=== PATIENT | male | born 1960 | race Caucasian/White ===

== ENCOUNTER → 2018-12-11 10:47 | Outpatient (CLI) | payer MEDICARE, MEDICAID ==
--- NOTE | 2018-12-19 10:39 | ST ---
PATIENT:ANDRADE MENDOZA MEDICAL RECORD: [id number] SEX: M LOCATION:[facility] ORDER #: ADMISSION DATE: 12/11/18 AGE OF PATIENT: 58 REFERRING PHYSICIAN: INTERPRETING PHYSICIAN: MICHELLE JO MD DATE OF SERVICE: 12/11/2018 PROCEDURE: Nuclear stress test. INDICATION: Chest pain, syncope. The patient was exercised on standard Lexiscan protocol with 33 mCi of sestamibi injected at peak stress, 11 mCi were used previously for rest images. FINDINGS: Gated SPECT reveals preserved ejection fraction at 55% with good wall motion and thickening and brightening throughout all segments. SPECT imaging Cardiolite was used as myocardial fusion agent. There is homogeneous uptake throughout all segments at rest and stress with no evidence of inducible ischemia or previous infarction. OVERALL IMPRESSION: 1. This is a normal nuclear stress test with no evidence of inducible ischemia or previous infarction. 2. Gated SPECT reveals a preserved ejection fraction at 55%. In this patient with ongoing symptomatology, the current scan does not suggest the presence of hemodynamically significant coronary artery disease. Evaluate noncardiac etiology of chest pain. TRANSINT:[id number] Voice Confirmation ID: [id number] DOCUMENT ID: [id number] MICHELLE JO MD at 1039 CC: ABIODUN WORLEY MD [id number] DICTATION DATE: 12/12/18 1233 ASSET MANAGER: 12/13/18 0253 DEP CLI 12/11/18 [address] [place] [address]
== END | disposition home or self-care (01) ==
LOC: D.HCCARDIO 10:47
PROVIDERS: ATTEND Internal Medicine Interventional Cardiology
DX: R55 Syncope and collapse (principal)

== ENCOUNTER → 2019-05-10 12:04 | Outpatient (CLI) | payer MEDICARE, MEDICAID ==
[2019-05-10 12:46] LABS: BASOPHILS 0.4 % (0-2); EOSINOPHILS 0.8 % (0-7); HEMATOCRIT 27.5 % (42.0-54.0); HEMOGLOBIN 9.2 g/dL (13.5-17.5); IMMATURE GRANULOCYTES 0.4 % (0-5); MCH 34.8 pg (26.0-34.0); MCHC 33.5 g/dL (31.0-37.0); MCV 104.2 fL (80.0-100.0); MEAN PLATELET VOLUME 10.8 fL (7.4-10.4); MONOCYTES 8.9 % (2-11); NEUTROPHILS 84.5 % (40-80); PLATELET COUNT 434 10x3/uL (130-400); RBC 2.64 10x6/uL (4.20-6.10); RDW 26.4 % (11.5-14.5); WBC 17.8 10x3/uL (4.8-10.8)
[2019-05-10 12:49] LABS: % SATURATION 61 % (15-55); IRON 198 ug/dl (35-150); TOTAL IRON BIND CAPACITY 321 ug/dl (260-445); UNSAT IRON BIND CAPACITY 123 ug/dl (150-375)
[2019-05-10 13:17] LABS: ALBUMIN 3.9 g/dL (3.4-5.0); ALKALINE PHOSPHATASE 59 U/L (46-116); ALT (SGPT) 19 U/L (10-68); BILIRUBIN - TOTAL 1.37 mg/dL (0.2-1.3); CALC OSMOLALITY 281 mosm/kg (275-300); CALCIUM 8.5 mg/dL (8.5-10.1); CARBON DIOXIDE 26.1 mmol/L (21.0-32.0); CHLORIDE - SERUM 105 mmol/L (98-107); CREATININE - SERUM 0.8 mg/dL (0.6-1.3); FERRITIN 123 ng/mL (3-244); GLUCOSE 93 mg/dL (74-106); POTASSIUM - SERUM 4.4 mmol/L (3.5-5.1); PROTEIN - SERUM 7.4 g/dL (6.4-8.2); SODIUM 141 mmol/L (136-145); UREA NITROGEN 14 mg/dL (7-18); eGFR NON AFRICAN AMERICAN > 90 mL/min (90-120)
== END | disposition home or self-care (01) ==
LOC: D.LABREF 12:04
PROVIDERS: ATTEND Legal Medicine
DX: R55 Syncope and collapse (principal); D46.9 Myelodysplastic syndrome, unspecified

== ENCOUNTER → 2020-01-15 13:25 | Outpatient (CLI) | payer MEDICARE, MEDICAID ==
[2020-01-15 18:20] LABS: HEMATOCRIT 26.9 % (42.0-54.0); HEMOGLOBIN 7.7 g/dL (13.5-17.5); MCH 24.7 pg (26.0-34.0); MCHC 28.6 g/dL (31.0-37.0); MCV 86.2 fL (80.0-100.0); PLATELET COUNT 434 10x3/uL (130-400); RBC 3.12 10x6/uL (4.20-6.10); RDW 26.3 % (11.5-14.5); WBC 6.4 10x3/uL (4.8-10.8)
[2020-01-15 18:46] LABS: EOSINOPHILS 5 % (0-7); LYMPHOCYTES 33 % (15-50); NEUTROPHILS 60 % (40-80); PLATELET ESTIMATE NORMAL
== END | disposition home or self-care (01) ==
LOC: D.LABREF 13:25
PROVIDERS: ATTEND Legal Medicine
DX: D46.1 Refractory anemia with ring sideroblasts (principal)

== ENCOUNTER → 2020-01-29 19:48 | Outpatient (CLI) | payer MEDICARE ==
[2020-01-29 20:19] LABS: HEMOGLOBIN 8.5 g/dL (13.5-17.5); MCHC 29.3 g/dL (31.0-37.0); MCV 88.7 fL (80.0-100.0); PLATELET COUNT 485 10x3/uL (130-400); RBC 3.27 10x6/uL (4.20-6.10); RDW 28.2 % (11.5-14.5); WBC 8.3 10x3/uL (4.8-10.8)
[2020-01-29 22:49] LABS: EOSINOPHILS 1 % (0-7); LYMPHOCYTES 24 % (15-50); MONOCYTES 6 % (2-11); NEUTROPHILS 69 % (40-80); PLATELET ESTIMATE NORMAL
== END | disposition home or self-care (01) ==
LOC: D.LABREF 19:48
PROVIDERS: ATTEND Legal Medicine
DX: D46.1 Refractory anemia with ring sideroblasts (principal)